=== PATIENT | male | born 1980 | race Caucasian/White ===

== ENCOUNTER 2019-10-28 21:15 | Emergency (ER) | payer BC, SELFPAY ==
--- NOTE | ~2019-10-28 | CT_ITS ---
EXAMINATION: CT abdomen pelvis wo con EXAM DATE: 10/28/2019 22:17 INDICATION: Back pain starting around 8 o'clock. Hematuria. TECHNIQUE: Spiral CT of the abdomen and pelvis was performed without contrast. Axial, coronal and sag ittal images were reviewed. The dose-length product (DLP) for this examination was 1721.40 mGy-cm. The exposure was tailored according to patient size (auto mA exposure control), and iterative reconst ruction (ASIR) was used as additional dose reduction technique. There is no prior study for comparis on. FINDINGS: There is a 3 mm stone in the right ureterovesicular junction with mild obstructive nephropa thy. No other genitourinary abnormality. The prostate is unremarkable. The bladder is unremarkable. The liver, spleen, adrenal glands and pancreas are unremarkable. Gallbladder is unremarkable. No biliary obstruction. There is no retroperitoneal or pelvic lymphadenopathy. The appendix is normal. The stomach and small bowel are unremarkable. There is expected amount of c olonic stool. No free intraperitoneal gas. The heart is normal in size. There are no pericardial or pleural effusions. The lung bases are unremarkable. There are no osteoblastic or osteolytic les ions identified. IMPRESSION: Right UVJ 3 mm stone, mild obstructive nephropathy. Urologist consultants would appreciate KUB as baseline for follow-up, treatment planning. Reviewed, dictated and finalized at location A.
[2019-10-28 21:20] VITALS: BP 179/97; PULSE 67; RESP 19; TEMP 36.6; O2SAT 100
[2019-10-28 22:15] LABS: Basophils Absolute Auto 0.1 K/mm3 (0.0-0.1); Basophils Percent Auto 0.7 % (0.2-1.2); Eosinophils Absolute Auto 0.3 K/mm3 (0-0.3); Eosinophils Percent Auto 2.7 % (0-4.4); Hemoglobin 15.2 g/dL (14.0-18.0); Immature Granulocyte Absolute 0.08 K/mm3 (0.00-0.031); Immature Granulocyte Percent A 0.7 % (0-0.5); Lymphocytes Percent Auto 14.8 % (18.3-44.2); Mean Corpuscular HGB Conc 34.5 g/dl (32-36); Mean Corpuscular Hemoglobin 29.1 pg (26-34); Mean Corpuscular Volume 84.3 fl (80-100); Mean Platelet Volume 10.7 fl (7.4-10.4); Monocytes Absolute Auto 0.8 K/mm3 (0.1-0.6); Monocytes Percent Auto 6.6 % (2.6-8.5); Neutrophils Absolute Auto 8.5 K/mm3 (1.3-6.7); Neutrophils Percent Auto 74.5 % (45.5-73.1); Platelet Count Result 281 k/mm3 (150-375); Red Blood Count 5.22 M/mm3 (4.6-6.20); Red Cell Distribution Width 14.6 % (11.5-14.5); White Blood Count 11.5 K/mm3 (4.5-10.0)
[2019-10-28 22:22] LABS: Alanine Aminotransferase 20 U/L (4-50); Albumin Level 4.2 g/dL (3.5-5.1); Alkaline Phosphatase 94 U/L (38-126); Anion Gap 14.4 mmol/L (7-16); Aspartate Amino Transferase 18 U/L (17-59); Bilirubin,Total 0.2 mg/dL (0.2-1.3); Blood Urea Nitrogen 16 mg/dL (9-20); Calcium 9.5 mg/dL (8.4-10.2); Carbon Dioxide 23 mmol/L (22-30); Chloride 105 mmol/L (98-107); Estimated CRCL calculation 127 ml/min; Estimated Glomerular Filt Rate > 60; Glucose 188 mg/dL (75-110); Lipase 63 U/L (23-300); Potassium 4.4 mmol/L (3.4-5.0); Sodium 138 mmol/L (137-145)
[2019-10-28] MEDS: TAMSULOSIN HCL 0.4 MG CAPSULE PO (22:43)
[2019-10-28] MEDS: KETOROLAC 30 MG/ML VIAL (*BKC) IV PUSH (22:43)
--- NOTE | 2019-10-28 22:49 | ED.MALEGU ---
HPI - Male Genitourinary General Chief complaint: Back Pain/Injury Stated complaint: kidney stone? Time Seen by Provider: 10/28/19 22:01 Source: patient Mode of arrival: ambulatory Limitations: no limitations History of Present Illness HPI Narrative: 39-year-old male History of hypertension coronary artery disease [id number] diabetes and obesity but no history of kidney stone or back problems While at work tonight started to have pain in the right back and lower abdomen nausea threw up once and diaphoresis Here he noticed possible blood in his urine and had noticed the same on one occasion a couple days earlier MD Complaint: other (Flank pain) Onset (ago): hour(s) Duration: constant Location: right flank and abdomen Severity: severe Quality: aching and sharp Relieving factors: none Exacerbating factors: none Associated symptoms: Reports blood in urine and nausea/vomiting Related Data Home Medications Medication Instructions Recorded Confirmed atorvastatin 10/28/19 10/28/19 clopidogrel 10/28/19 docusate sodium PO 10/28/19 famotidine 10/28/19 fluconazole 10/28/19 glipizide mg 10/28/19 lisinopril 10/28/19 Allergies Allergy/AdvReac Type Severity Reaction Status Date / Time No Known Allergies Allergy Verified 10/28/19 22:00 Review of Systems Review of Systems: All systems reviewed & are unremarkable except as noted in HPI and below Constitutional: Constitutional: Denies chills and Denies fever(s) Eyes: Eyes: Reports no additional eye complaints ENT: Denies headache(s) Cardiovascular: Cardiovascular: Denies chest pain, Denies leg edema, Denies palpitations and Denies dyspnea Respiratory: Respiratory: Denies cough, Denies dyspnea and Denies wheezing Gastrointestinal: Gastrointestinal: Denies diarrhea, Denies nausea and Denies vomiting Genitourinary: Genitourinary: Reports hematuria, Denies dysuria and Denies urinary frequency Musculoskeletal: Musculoskeletal: Reports no additional musculoskeletal complaints Integumentary/Breasts: Skin/Breast: Denies rash Neurologic: Denies headache(s) Psychiatric: Psychiatric: Reports no additional psychiatric complaints Hematologic/Lymphatic: Hematologic/Lymphatic: Denies easy bleeding PMFSH Social History Social History Gender identity (if verbalized by the patient): Male Exam Const: General: healthy appearing, acute distress mild and other (Obese) Nutritional Appearance: well nourished Orientation/consciousness: patient oriented x3 (alert) and Other orientation findings (Alert) Limitations: no limitations HENMT: Head: normocephalic and atraumatic Ears: external ears normal General nose exam: no epistaxis Mouth: Yes moist mucous membranes Eyes: Conjunctivae: conjunctivae normal EOM: EOMs intact bilaterally Neck: Neck: no lymphadenopathy Chest: Chest palpation & inspection: no tenderness Resp: Effort & Inspection: normal respiratory effort Auscultation: clear to auscultation bilaterally, no rales, no rhonchi, no wheezes and other (breath sounds equal) Cardio: Rate: regular rate Rhythm: regular rhythm Heart sounds: no gallops and no murmurs GI: Inspection: non-distended GI Palp: No abdominal tenderness and Yes Soft to palpation Auscultation: other (bowel sounds present) : General: Yes CVA tenderness (Mild) Skin: General skin exam: normal color and no rashes or lesions noted Neuro: General: patient oriented x3 (alert) and moves all extremities Speech: normal speech Extrem: General: full ROM and no pedal edema Course Vital Signs Vital signs: Vital Signs Temperature 36.6 C 10/28/19 21:20 Pulse Rate 67 10/28/19 21:20 Respiratory Rate 19 10/28/19 21:20 Blood Pressure 179/97 H 10/28/19 21:20 Pulse Oximetry 100 10/28/19 21:20 Temperature 36.6 C 10/28/19 21:20 Pulse Rate 67 10/28/19 21:20 Respiratory Rate 19 10/28/19 21:20 Blood
[2019-10-28 22:52] LABS: Add Urine Microscopic? YES; Appearance Urine Cloudy (Clear); Bacteria Urine Trace /hpf; Bilirubin Urine Negative (Negative); Blood Urine 3+ (Negative); Calcium Oxalate Crystals Urine Present /hpf; Color Urine Yellow (Yellow); Glucose Urine UA Negative (Negative); Ketones Urine Negative (Negative); Leukocyte Esterase Ur Negative LEU/UL (Negative); Mucus Urine Few /lpf; Nitrate Urine Negative (Negative); Protein Urine 2+ mg/dL (Negative); RBC Urine >75 /hpf (0-2); Squamous Epithelial Cell Urine Few /hpf (Few)
[2019-10-28 22:53] LABS: Specific Grav Ur 1.035 (1.001-1.035)
[2019-10-28 23:35] VITALS: BP 159/83; PULSE 61; RESP 16; O2SAT 15
== END 2019-10-28 23:36 | disposition home or self-care (01) ==
PROVIDERS: Emergency Medicine; Emergency Provider Emergency Medicine
DX: N20.1 Calculus of ureter (principal); N13.8 Other obstructive and reflux uropathy
CPT/HCPCS: 36415; 74176; 80053; 81001; 83690; 85025; 96374; 99284; A9270; J1885